=== PATIENT | female | born 1990 | race Caucasian/White ===

== ENCOUNTER 2018-02-28 17:02 | Emergency (ER) | payer MEDICAID, SELFPAY ==
[2018-02-28 17:02] VITALS: BP 145/76; PULSE 78; RESP 16; TEMP 36.1; O2SAT 98; BMI 49.6
[2018-02-28] MEDS: Ondansetron 4 MG/2 ML Vial IV (19:20)
[2018-02-28] MEDS: 0.9% Normal Saline 1,000 ML 1000 ML IV (19:20)
[2018-02-28] MEDS: Ketorolac 30 MG/ML Syringe IV (19:21)
[2018-02-28 19:38] LABS: Absolute Lymphocyte Count 3.85 X10^3/ul (0.83-4.51); Absolute Neutrophil Count 5.4 X10^3/uL (2.0-7.7); Basophil# 0.03 X10^3/uL; Basophil% 0.3 % (0-1); Eosinophil# 0.11 X10^3/uL; Eosinophils% 1.1 % (0-5); Hematocrit 38.3 % (37-47); Hemoglobin 13.2 g/dl (12.0-15.0); Lymphocyte # 3.85 X10^3/ul (4.0); Lymphocyte % 39.1 % (19-41); Mean Corp Hgb Conc 34.5 g/gl (32-36); Mean Corpuscular Hgb 30.5 pg (27.0-32.0); Mean Corpuscular Volume 88.5 fL (81-99); Mean Platelet Vol. 9.5 fl (6.2-12.0); Monocyte# 0.44 X10^3/uL; Monocyte% 4.5 % (0-10); Neutrophil # 5.39 X10^3/uL (2.7-7.7); Neutrophil % 54.8 % (47-70); Platelet Count 243 K/mm3 (150-450); RBC Distribution Width CV 12.7 % (11.6-14.6); RBC Distribution Width SD 40.6 fl (35.1-43.9); Red Blood Count 4.33 M/mm3 (4.2-5.4); White Blood Count 9.8 K/mm3 (4.4-11.0)
[2018-02-28 19:39] LABS: POSITIVE COUNT NO; POSITIVE DIFFERENTIAL NO; POSITIVE MORPHOLOGY NO
[2018-02-28 20:10] VITALS: BP 108/63; RESP 15; O2SAT 98
[2018-02-28 20:13] LABS: AST(SGOT) 21 U/L (15-37); Alanine Aminotransfer ALT/SGPT 26 U/L (13-56); Albumin, Serum 3.4 g/dL (3.2-5.0); Alkaline Phosphatase 87 U/L (45-117); Anion Gap 7 (5-15); BUN 10 mg/dL (7-18); BUN/Creat Ratio 14.9 RATIO (10-20); Calcium,Total 8.5 mg/dL (8.5-10.1); Chloride 107 mmol/L (98-107); Creatinine, Serum 0.67 mg/dL (0.55-1.02); EST Glomerular Filtration Rate 111 mL/min (>60); Est Glom Filt Rate - Afr Amer 135 mL/min (>60); Estimated Creatinine Clearance 108.91 ml/min; Globulin 3.4 g/dL (2.2-4.2); Glucose 79 mg/dL (74-106); Lipase 103 U/L (73-393); Potassium 3.6 mmol/L (3.5-5.1); Protein, Total 6.8 g/dL (6.4-8.2); Sodium Level 140 mmol/L (136-145)
[2018-02-28 20:31] LABS: Pregnancy, Serum, hCG Quali. NEGATIVE Negative (0-9 Nonpreg)
--- NOTE | 2018-02-28 20:58 | ED.DCSUM_ITS ---
- ER Visit Summary Date of Service: 02/28/18 Chief Complaint: Abdominal pain History of Present Illness: The patient is a [address] Lafleur. She reports that she has epigastric abdominal pain began approximately 2 months ago. Is continuous fullness with stabbing episodes. She reports pain is 1010 at worst and 7-10 currently. She states it is worsened with eating or drinking anything. This is not specific to fatty foods. She reports is relieved by nothing. She also complains of early satiety. Patient has had nausea without vomiting. No diarrhea. Her last bowel was today. She has had no melena or hematochezia. No dysuria frequency. No fever or chills. Her last menstrual period was February 03. States that she saw Dr. Nagel yesterday and was placed on Bentyl and omeprazole and has not had any relief. Physical Examination: Vitals: Stable. Afebrile. General: Well-nourished and well-developed. Head: Normocephalic atraumatic. Neck: Supple, no lymphadenopathy. No JVD. Nontender. Cardiovascular: Regular rate and rhythm. No murmurs. Respiratory: No respiratory distress. Clear to auscultation bilaterally. Abdominal: Soft, mild diffuse tenderness palpation that is worst in the epigastric region, nondistended, normal bowel sounds. No guarding, rebound, or peritoneal signs. Back: Nontender. Extremities: Nontender, no edema. Skin: Normal color, no rash. Neurologic: Alert and oriented ?3. Cranial nerves II through XII are intact. Normal strength and sensation. Psych: Normal affect. Test Results: CBC, Chem-7, LFTs, lipase are all normal. test is negative. Emergency Department Course and Treatment: Patient was given a GI cocktail p.o. She was given Toradol, Zofran, Pepcid IV. She is resting comfortably. Treatment Plan: Patient will be discharged instructions to continue her omeprazole. She instructed follow-up Dr. Lafleur in 1 week if not improving. Her symptoms are more consistent with gastritis or ulcer then biliary disease. She does have a history of cholecystectomy. Disposition: To home in improved and stable condition. Impression: 1. Abdominal pain, chronic. This note was generated with [employer] software. It may contain incorrect words, spelling, and punctuation that were not noted in review of the chart prior to signing ED Disposition - Plan for ED Patient: Disposition: Home or Assisted Living Chief Complaint: Abd Pain Instructions: ED PUD Vs Gastritis Referrals: Guanako Lafleur MD [Primary Care Provider] - 1 Week if not improving
[2018-02-28 21:10] VITALS: BP 108/63; PULSE 78; RESP 15; O2SAT 98
== END 2018-02-28 21:15 | disposition home or self-care (01) ==
PROVIDERS: Emergency Provider Emergency Medicine; Family Provider Family Medicine; PCP Family Medicine
DX: R10.13 Epigastric pain (principal); G89.29 Other chronic pain; R11.0 Nausea; Z79.899 Other long term (current) drug therapy
CPT/HCPCS: 80053; 83690; 84703; 85025; 96365; 96375; 99284; J7030; J2405; J3490

== ENCOUNTER → 2018-06-11 07:18 | Outpatient (CLI) | payer MEDICAID, SELFPAY ==
--- NOTE | 2018-06-11 09:46 | NEURO ---
NCS and/or EMG Patient Report Ordering Doctor: Anna Dean DATE OF SERVICE: 06/11/18 This is a bilateral upper extremity nerve conduction study and a right upper extremity EMG performed on this 28-year-old female who is currently 7 weeks . She has had enterprise systems engineer strength weakness as well as abnormal sensations in both hands for several years. Symptoms are worse on the right. There is no history of diabetes. She says a injection in the right wrist did help the symptoms for approximately 3 months but symptoms have recurred. Bilateral upper extremity sensory and motor nerve conduction study is performed demonstrating prolongation of the median motor and sensory distal latencies with preservation of amplitudes and mild drop in conduction velocities more so on the right side. The ulnar motor and sensory and radial sensory responses are normal. Median and ulnar F waves are relatively preserved bilaterally however the right median F wave is very mildly prolonged compared to the left median F wave and to the ulnar F waves. Right upper extremity EMG is performed. Muscles evaluated included the first dorsal interosseous, abductor pollicis brevis, brachioradialis, biceps, triceps and deltoid muscles. The abductor pollicis brevis did did demonstrate mild increase in motor unit potential amplitude, all other muscles demonstrated normal insertional activity with absence of pathologic spontaneous activity, as well as normal recruitment pattern and amplitude. Impression abnormal elective his like study consistent with moderate to severe carpal tunnel syndrome bilaterally worse on the right side.
== END ==
PROVIDERS: Family Provider Family Medicine; PCP Family Medicine; Referring Provider Orthopaedic Surgery; Visit Provider Orthopaedic Surgery
DX: R20.0 Anesthesia of skin (principal)
CPT/HCPCS: 95886; 95911

== ENCOUNTER 2019-11-26 17:08 | Emergency (ER) | payer MEDICAID, SELFPAY ==
[2019-11-26 17:09] VITALS: BP 144/96; PULSE 70; RESP 16; TEMP 36.6; O2SAT 97; BMI 42.9
--- NOTE | 2019-11-26 17:36 | CT_ITS ---
STUDY: CT BRAIN WITHOUT CONTRAST REASON FOR EXAM: Female, 29 years old. HEAD INJURY, NOT ACTING RIGHT, CONCERN FOR SEIZURE, NOT ACTING RIGHT RADIATION DOSAGE (If Supplied By Facility): CTDIvol = ( 44.99 ) mGy, DLP = ( 762.36 ) mGycm TECHNIQUE: Transaxial CT imaging of the brain was performed without administration of intravenous contrast material. Individualized dose optimization techniques were used for this CT. COMPARISON: None. FINDINGS: Normal soft tissue structures. Normal calvarium. No dense artery sign. No midline shift. No hydrocephalus. Normal size ventricles and extra-axial spaces for the patient''s age. Normal white matter tracts of the cerebral hemispheres. Normal basal ganglia and thalami. Normal brainstem. Normal cerebellum. There is no intracranial hemorrhage. There are no findings of an acute ischemic infarction. Normal visualized paranasal sinuses. CT/Brain/Head without Contrast IMPRESSION: No demonstrated acute or significant intracranial process. Electronically Signed: Zeyad Pleitez MD at 18:36 EDT , Service support ,
--- NOTE | 2019-11-26 17:40 | ED.VISSUMM ---
- ER Visit Summary Date of Service: 11/26/19 Chief Complaint: Head injury and possible seizure History of Present Illness: The patient is a 29 F past medical history of pancreatitis. Patient was getting a tattoo at 2 AM this morning at someone's house. It is a large tattoo on her left thigh. Just before the tattoo was finished she decided to stand up. As she stood up she passed out she fell towards refrigerator then fell backwards. Bystanders said she hit her head and may have had a seizure. She denies any headache. No neck pain. She does complain lower back pain. Prior events that she has not been sick recently. No fever, chills, nausea, vomiting or diarrhea. No dysuria. Physical Examination: Young female no acute distress vital signs stable afebrile. H EENT exam Dry reactive laser motions are intact. No signs of trauma to her face or scalp. Nontender. Neck nontender. Full range of motion. Able to touch chin to chest. No lymphadenopathy. Lungs clear to auscultation bilaterally. Heart regular rate and rhythm no murmur rate about 70. Chest wall nontender. Abdomen soft nontender normal bowel sounds no peritoneal signs. Mildly obese. Pelvic girdle intact. Remedies moves all 4. Neurovascular intact. Equal symmetrical 5-5 direct support professional home health strength. Dorsi plantarflexion intact. Back cervical thoracic spine nontender she has mild lumbar tenderness diffusely. There is no ecchymosis or bruising. No signs of trauma. Neurologically she is awake alert with no focal motor deficits. I asked the patient had a week she said she did know. She said she normally does not know. She did know the president and where she is currently present. She does follow commands. She has no motor deficits. Test Results: CAT scan brain read as normal by the radiologist and reviewed by me. LS-spine films 2 views read by me and the radiologist shows no acute abnormality. 2 views. CBC white count 12. Hemoglobin 13. No bands. Chemistries normal. Emergency Department Course and Treatment: Young female fall reported head injury and possible seizure. Exam is unremarkable at this time other than reproducible lumbar pain. Normal neurologic exam. Repeat exam patient is doing well at 1915. She will be discharged home. We went over all of her test results. She will be instructed to follow-up for further evaluation. Return if she has another seizure. Treatment Plan: Outpatient follow-up with primary care physician. Disposition: Discharge Impression: Fall with head injury Lumbar contusion Rule out seizure This note was generated with [employer] dictation software. It may contain incorrect words, spelling, and punctuation that were not noted in review of the chart prior to signing ED Disposition - Plan for ED Patient: Disposition: Home or Assisted Living Instructions: ED Head Injury Adult Referrals: Guanako Lafleur MD [Primary Care Provider] - 3-5 Days Additional Instructions: Call and follow-up with primary care physician. No driving until they rule out that you have any seizure diagnosis.
--- NOTE | 2019-11-26 18:03 | ED.DEP ---
ED Disposition - Plan for ED Patient: Disposition: Home or Assisted Living Instructions: ED Head Injury Adult Referrals: Gaunako Lafleur MD [Primary Care Provider] - 3-5 Days Additional Instructions: Call and follow-up with primary care physician. No driving until they rule out that you have any seizure diagnosis.
--- NOTE | 2019-11-26 18:05 | RAD_ITS ---
STUDY: X-RAY - LUMBAR SPINE REASON FOR EXAM: Female, 29 years old. FALL FROM SEIZURE, PAIN TO LOWER BACK TECHNIQUE: 3 view(s) of the lumbar spine were obtained. COMPARISON: None FINDINGS: Normal lumbar lordosis. There is no substantial scoliosis. There is a normal alignment of the vertebrae. Normal vertebral bodies and endplates. Normal disc space heights. There is no demonstrated fracture or compression deformity. The soft tissue structures are unremarkable. Surgical clips are present in the right upper quadrant. RAD/Lumbar Spine 2 or 3 Views IMPRESSION: Normal x-ray examination of the lumbar spine. Electronically Signed: Zeyad Pleitez MD at 18:48 EDT , Service support ,
[2019-11-26 18:16] LABS: Absolute Lymphocyte Count 3.99 X10^3/uL (0.83-4.51); Absolute Neutrophil Count 7.5 X10^3/uL (2.0-7.7); Basophil# 0.05 X10^3/uL; Basophil% 0.4 % (0-1); Eosinophil# 0.16 X10^3/uL; Eosinophils% 1.3 % (0-5); Hematocrit 42.8 % (37-47); Hemoglobin 13.8 g/dL (12.0-15.0); Lymphocyte # 3.99 X10^3/ul (4.0); Lymphocyte % 32.4 % (19-41); Mean Corp Hgb Conc 32.2 g/dL (32-36); Mean Corpuscular Hgb 29.2 pg (27.0-32.0); Mean Corpuscular Volume 90.7 fL (81-99); Mean Platelet Vol. 9.4 fl (6.2-12.0); Monocyte# 0.58 X10^3/uL; Monocyte% 4.7 % (0-10); NRBC Flagged by Analyzer 0 % (0-5); Neutrophil # 7.49 X10^3/uL (2.7-7.7); Neutrophil % 60.7 % (47-70); Platelet Count 259 K/mm3 (150-450); RBC Distribution Width CV 12.5 % (11.6-14.6); RBC Distribution Width SD 41.1 fl (35.1-43.9); Red Blood Count 4.72 M/mm3 (4.2-5.4); White Blood Count 12.3 K/mm3 (4.4-11.0)
[2019-11-26 18:31] LABS: Anion Gap 6 (5-15); BUN 11 mg/dL (7-18); BUN/Creat Ratio 14.5 RATIO (10-20); Chloride 110 mmol/L (98-107); Creatinine, Serum 0.76 mg/dL (0.55-1.02); EST Glomerular Filtration Rate 96 mL/min (>60); Est Glom Filt Rate - Afr Amer 116 mL/min (>60); Estimated Creatinine Clearance 94.32 ml/min; Glucose 87 mg/dL (74-106); Potassium 3.7 mmol/L (3.5-5.1); Sodium Level 143 mmol/L (136-145)
[2019-11-26 19:23] VITALS: BP 131/81; PULSE 69; RESP 16; O2SAT 99
== END 2019-11-26 19:29 | disposition home or self-care (01) ==
LOC: ED 18:17
PROVIDERS: Emergency Provider Emergency Medicine; PCP Family Medicine
DX: S09.90XA Unspecified injury of head, initial encounter (principal); S30.0XXA Contusion of lower back and pelvis, initial encounter; W19.XXXA Unspecified fall, initial encounter; Y93.89 Activity, other specified; Y92.009 Unspecified place in unspecified non-institutional (private) residence as the place of occurrence of the external cause; Z72.0 Tobacco use
CPT/HCPCS: 70450; 72100; 80048; 85025; 99284; A4216

== ENCOUNTER 2020-11-25 06:09 | Day surgery (SDC) | payer MEDICAID, SELFPAY ==
[2020-11-25] VITALS (9 sets, daily range): BP systolic 113–132; BP diastolic 65–88; PULSE 65–82; RESP 18–20; TEMP 36.3–36.7; O2SAT 93–100; BMI 41.8
[2020-11-25] MEDS: Lactated Ringers 1,000 ML 100 ML IV (07:03)
[2020-11-25] MEDS: Cefazolin 2 GM in 0.9% Normal Saline 100 ML IV (07:28)
--- NOTE | 2020-11-25 07:43 | HP.PCM_ITS ---
History and Physical I have re-examined the patient. There are no clinical changes since date of exam. Intake Intake Visit Reasons: Bilat Wrist Is patient in pain?: Yes Allergies codeine Allergy (Verified 11/03/20 10:41) Hives lorazepam [From Ativan] Allergy (Verified 11/03/20 10:41) Hives tramadol [From Ultram] Allergy (Verified 11/03/20 10:41) Hives Medications NK 11/26/19 [History Confirmed 11/03/20] [facility] Social History (Updated 11/03/20 @ 14:[address] Anna Dean DO) Smoking Status: Current every day smoker HPI Bilat Wrist: Details: Parts of this documentation were recorded by a scribe, this documentation accurately reflects the service provided and the decisions made by me, Dr. Anna Dean DO 11/03/20 1005. FEDERICO PAGE is a 30 year old F here today for was seen in 2019 - pain is getting worse going up arm now. She complains of bilateral wrist pain, right greater than left, into her elbows. She notes that she picks up light items and has cramping of her hands, and drops the items. Patient denies any cervical spine pain. Patient had injections many years ago which made her pain worse. She had an EMG which showed severe carpal tunnel syndrome. Patient notes that she has tried bracing which was not helpful. Ortho Exam Right Wrist/Hand Skin/Wound: Yes CDI, No Ecchymosis Right Wrist: Yes ROM-Extension 0-60, ROM-Flexion 0-80, ROM-Pronation 0-80, ROM- Supination 0-90 and Durken's Test Motor: EPL: 5, FDP-2: 4, 1st Dorsal Interosseous: 5, APB: 4 Sensation: Radial: I, Ulnar: I, Median: D WRIST: thenar atrophy Left Wrist/Hand Skin/Wound: No Ecchymosis Left Wrist: Yes ROM-Extension 0-60, Yes ROM-Flexion 0-80, Yes ROM-Pronation 0- 80, Yes ROM-Supination 0-90 and Yes Durken's Test Motor: EPL: 5, FDP-2: 4, APB: 4 Sensation: Radial: I, Ulnar: I, Median: D Assessment & Plan Problems 1. Carpal tunnel syndrome, bilateral G56.03 Plan Spoke with the patient about the surgery procedure and recovery for rt carpal tunnel release and left ct injection. Reviewed the pre-operative plans with the patient. Risks and benefits of the procedure were fully explained, including but not limited to infection, neurovascular injury, continued pain, arthritis, stiffness, need for further surgery, re-injury, DVT, PE, general risks of anesthesia, and loss of limb or life. The patient understands all the risks and does wish to proceed with written consent. discussed risks and options for treatment. Coding Level of Care Code Off vis,est,level 4 Diagnoses Carpal tunnel syndrome, bilateral G56.03 COVID (Procedure Consent) Procedure Criteria Procedure Criteria: Yes Elective The surgeon/proceduralist and patient have discussed in detail the risk of exposure to and/or potential harm posed by the COVID-19 virus with having a surgery/procedure at this time versus the risk of? delaying the surgery/procedure. It is not possible to know either the risk of delaying the surgery or procedure or chance of getting an infection with perfect accuracy, but a joint decision was made between the patient and the surgeon/proceduralist ?to proceed at this time with the scheduled surgery/procedure as indicated on the consent form.
--- NOTE | 2020-11-25 07:44 | DCINST_ITS ---
Discharge Diet: No Restrictions - Leave dressing on until seen in postop clinic in 10-14 days for suture removal, keep dressing clean, dry, intact; change dressing if gets wet/dirty, call with concerns Discharge Activity: May Not Drive May shower in (days): 1 Ice area for (Minutes): 20 - Every hour while awake. Weight Bearing Status: Weight bearing as tolerated Keep extremity elevated above heart level: Operative Extremity Call your doctor if your incision/area has: Continuous Slow Oozing, Sudden Increased Bleeding, Increased Pain/ Swelling, Increased Redness, Foul Smelling Discharge Call your doctor if you observe: Fever of 101 or Higher, Coldness, Increased Pain, Numbness or Tingling, Change in Color, Calf discomfort Allergies/Adverse Reactions: Allergies codeine Allergy (Verified 11/25/20 06:33) Hives Latex, Natural Rubber Allergy (Verified 11/25/20 06:33) Rash lorazepam [From Ativan] Allergy (Verified 11/25/20 06:33) Hives tramadol [From Ultram] Allergy (Verified 11/25/20 06:33) Hives Medications to take at Discharge traZODone [Desyrel] 50 mg PO QHS 11/25/20 Primary Care Physician: Guanako Lafleur MD [Primary Care Provider] - Test Results: Test results from this visit will be discussed in further detail at your follow- up appointment, if applicable. Please Follow Up With: Anna Dean, - [phone]
--- NOTE | 2020-11-25 07:44 | PCM.OPRPT ---
Report of Operation Date of Procedure: 11/25/20 Pre-Operative Diagnosis: bilateral carpal tunnel syndrome Post-Operative Diagnosis: same Surgery/Procedure Performed:: right carpal tunnel release, left carpal tunnel injection Type of Anesthesia:: Malcolm Matthews Anesthesiologist: Jared Yeager Estimated Blood Loss (mL): none Fluids Replaced: 600cc Description of Procedure: Preoperative note Patient is a 30 year old patient with nerve conduction study confirming bilateralcarpal tunnel syndrome. Patient failed conservative treatment for her carpal tunnel elected proceed with right carpal tunnel release and left carpal tunnel injection. Risks benefits and alternatives surgery discussed with patient. Risks including but not limited to blood loss, blood clot, infection, neurovascular injury, failure procedure, loss of life and loss of limb. Patient is aware like proceed with above. Operative note Patient seen and examined preoperative holding area. right hand was marked. History and physical and consent reviewed. Patient was brought to the operating room placed supine on the operating table. Sign in, anesthesia, antibiotics were administered. right upper extremity was prepped and draped after Malcolm block was initiated. All bony prominences well-padded SCDs placed on bilateral lower extremities. We marked out our incisions for our carpal tunnel release at the intersection of Bhaskar's line in the fourth ray flexed. We extended about a centimeter and a half. Timeout was performed. We then checked ensure that the Malcolm block was working with pickups which it was.. We then used a 15 blade to make a skin incision. We then dissected down tenotomy syllable of the transverse carpal ligament. We then used a new 15 blade cut through the transverse carpal ligament down to the level of the median nerve. We then further released the median nerve the combination of the 15 blade and tenotomies. The nerve was grayish in color and adherent to the transverse carpal ligament volarly. We released the transverse carpal ligament distally to the fat pad and then proximally under standard technique. We then palpated to ensure that we released all of the transverse carpal ligament which we did. We irrigated the incision with copious amounts of sterile saline. All bleeders were coagulated. The incision was closed with interrupted 4-0 nylon stitches. We then moved to the left side and under standard sterile technique injected the left carpal tunnel with 1 cc bupivacaine half cc Kenalog 40mg. tourniquet was deflated for total working time of 11 minutes. Patient tolerated procedure well there were no complications. Patient transferred to recovery room in stable condition. Postoperative note Hospital pharmacy has prescription Leave dressing clean dry and intact Follow-up in 2 weeks Call with concerns This note was generated with [employer] dictation software. It may contain incorrect words, spelling, and punctuation that were not noted in checking the note before signing
[2020-11-25] MEDS: Mupirocin Ointment 22gm Tube 1 APPLIC (08:00)
[2020-11-25] MEDS: Ropivacaine 0.5% 30 ML Vial (08:00)
[2020-11-25] MEDS: Triamcinolone Acetonide 40 MG/ML Vial (08:05)
== END 2020-11-25 09:39 | disposition home or self-care (01) ==
LOC: SDC 06:09 → AC 06:10
PROVIDERS: PCP Family Medicine; Referring Provider Orthopaedic Surgery; Visit Provider Orthopaedic Surgery
PROC: (CPT 64721; principal; 2020-11-25 07:15)
DX: G56.03 Carpal tunnel syndrome, bilateral upper limbs (principal); F17.200 Nicotine dependence, unspecified, uncomplicated
CPT/HCPCS: 01992; 20526; 64721; J7120; A4216

== ENCOUNTER 2020-12-28 10:40 | Emergency (ER) | payer MEDICAID, SELFPAY ==
[2020-12-28 10:42] VITALS: BP 157/93; PULSE 84; RESP 18; TEMP 36; O2SAT 94; BMI 41.8
--- NOTE | 2020-12-28 11:01 | EX.ED.VIS.UR ---
HPI HPI - URI History of Present Illness Chief Complaint: Shortness of Breath Narrative Narrative: Patient presents with cough congestion rhinorrhea and difficulty breathing through her nose. She is complaining of subjective chills. No noted fever. No myalgias. She does say it is somewhat difficult to smell or taste. She has history of DVT and PE but she says these are different symptoms. ROS ROS ED ROS Narrative Past medical history: DVT and PE, depression Medications: Reviewed Social history: Noncontributory Review of systems: All systems negative except as indicated General: No fever, subjective chills Eyes: No visual changes ENT: Upper airway congestion as in HPI Neck: No neck pain Cardiovascular: No chest pain Respiratory: Difficulty breathing through the nose but no other shortness of breath. She does have a slight cough but mostly nonproductive Gastrointestinal: No abdominal pain, nausea vomiting or diarrhea Genitourinary: No dysuria Musculoskeletal: Denies myalgias no difficulty with ambulation Skin: No rash Neurological: No memory loss, confusion or any focal weakness Psych: No recent behavioral changes Hematologic: No easy bleeding or easy bruising PFSH PFSH Home Medications trazodone 50 mg PO QHS 11/25/20 [History Last Taken Unknown] amoxicillin-pot clavulanate [Augmentin] 1 tab PO Q8H #21 tab 12/28/20 [Rx Last Taken Unknown] Allergy/AdvReac Type Severity Reaction Status Date / Time codeine Allergy Hives Verified 12/28/20 10:41 Latex, Natural Rubber Allergy Rash Verified 12/28/20 10:41 lorazepam [From Ativan] Allergy Hives Verified 12/28/20 10:41 tramadol [From Ultram] Allergy Hives Verified 12/28/20 10:41 Surgical History (Updated 12/28/20 @ 11:04 by Leah Mckinney) History of carpal tunnel surgery of right wrist History of cholecystectomy Social History Smoking Status: Current every day smoker EXAM Physical Exam Narrative Exam Narrative: Physical exam General: She appears in slight distress Head: Normocephalic, Atraumatic Eyes: Conjunctiva not pale ENT: She has rhinorrhea, swollen nasal turbinates, the nasal turbinates are beefy red. She has postnasal drip. Normal soft palate. No exudates. Neck: Supple, Nontender, No lymphadenopathy Cardiovascular: Regular rate, Regular rhythm Respiratory: No distress, CTA bilaterally. She is speaking in full sentences and she is not tachypneic. I do not appreciate any wheezing. Abdomen: Soft, Nontender, Nondistended Back: Nontender, Normal Inspection. Negative for: CVA tenderness Extremities: Nontender, No edema Skin: Normal color, No rash Neurological: Alert, Normal Strength, Normal Sensation Psychological: Normal affect Const Vital Signs: 12/28/20 10:42 12/28/20 11:03 Temperature 96.8 F L Temperature Source Temporal Pulse Rate 84 82 Respiratory Rate 18 18 Respiratory Effort Short of Breath Blood Pressure 157/93 H Blood Pressure Mean 114 Pulse Ox 94 99 Oxygen Delivery Method Room Air Room Air MDM MDM MDM Narrative Medical decision making narrative: Patient has signs and symptoms of an upper respiratory infection with sinusitis I will treat her accordingly. She has normal vitals normal saturation and a negative Covid. Radiography Diagnostic Testing: Chest x-ray interpreted by emergency doctor does not show any pneumonia, normal cardiac silhouette. Discharge Plan Triage Chief Complaint: Shortness of Breath ED Provider: Jake Cisneros Dx/Rx/DC Orders Clinical Impression: Sinusitis Instructions: ED Sinusitis (Antibiotic Treatment) Prescriptions: New amoxicillin-pot clavulanate [Augmentin] 500-125 mg tablet 1 tab PO Q8H Qty: 21 RF: 0 No Action trazodone 50 MG tablet 50 mg PO QHS RF: 0 Primary Care Provider: Guanako Lafleur Referrals: Guanako Lafleur MD [Primary Care Provider] - 2 Days
[2020-12-28 11:03] VITALS: PULSE 82; RESP 18; O2SAT 99
--- NOTE | 2020-12-28 11:10 | RAD_ITS ---
STUDY: X-RAY CHEST REASON FOR EXAM: Female, 30 years old. Cough TECHNIQUE: Single AP portable view of the chest. COMPARISON: Comparison is made with prior study dated 07/14/2015. FINDINGS: The lungs are clear and expanded. There is no demonstrated pleural abnormality. Normal size heart. Normal mediastinum and dutch. Normal visualized pulmonary arteries. Normal visualized aortic arch and descending thoracic aorta. Normal visualized thoracic spine. Normal visualized ribs, clavicles, and shoulders. There is no demonstrated abnormality of the visualized soft tissue structures of the upper abdomen. RAD/Chest 1 View (Portable) IMPRESSION: Normal x-ray examination of the chest. Electronically Signed: Albert Sigala MD at 11:51 EDT , Service support ,
[2020-12-28 12:04] VITALS: BP 126/74; PULSE 59; RESP 16; O2SAT 98
== END 2020-12-28 12:06 | disposition home or self-care (01) ==
LOC: ED 11:21
PROVIDERS: Emergency Provider Emergency Medicine; PCP Family Medicine
DX: J32.9 Chronic sinusitis, unspecified (principal); F17.200 Nicotine dependence, unspecified, uncomplicated
CPT/HCPCS: 71045; 87426; 99282

== ENCOUNTER 2021-02-14 11:46 | Day surgery (SDC) | payer MEDICAID, SELFPAY ==
[2021-02-14] VITALS (7 sets, daily range): BP systolic 108–142; BP diastolic 67–90; PULSE 59–79; RESP 16–106; TEMP 36.1–36.3; O2SAT 95–99; BMI 41.3
[2021-02-14] MEDS: Lactated Ringers 1,000 ML 100 ML IV (12:46)
[2021-02-14] MEDS: Bupivacaine Mpf 0.5% 30 ML VIAL (13:23)
[2021-02-14] MEDS: Cefazolin 2 GM in 0.9% Normal Saline 100 ML IV (15:09)
--- NOTE | 2021-02-14 15:41 | HP.PCM_ITS ---
History and Physical Date of Admission: 02/14/21 Date of Service: 01/04/21 MR#:[id number]: FEDERICO PAGE [facility] #:[id number]:1990 Provider:Dr. Max Schaffer DOAge/Sex: 30/F [place] [place] Intake Intake Visit Reasons: Right hand Chief Complaint: bilat wrist pain Allergies codeine Allergy (Verified 12/28/20 10:41) Hives Latex, Natural Rubber Allergy (Verified 12/28/20 10:41) Rash lorazepam [From Ativan] Allergy (Verified 12/28/20 10:41) Hives tramadol [From Ultram] Allergy (Verified 12/28/20 10:41) Hives [facility] Surgical History (Updated 12/28/20 @ 11:04 by Leah Mckinney) History of carpal tunnel surgery of right wrist History of cholecystectomy Social History Smoking Status: Current every day smoker HPI Right hand Details: Parts of this documentation were recorded by a scribe, this documentation accurately reflects the service provided and the decisions made by me, Dr. Max Schaffer, 01/04/21 0758. FEDERICO PAGE is a 30 year old F here today for 6 week post op right carpal tunnel release, left wrist/hand pain and numbness/tingling. Right hand is feeling much better, her ROM is good, she occasionally has sharp shooting pains into her pinky, but overall is much improved since surgery. She has no other concerns regarding her right hand. In regards to her left hand, she has sharp shooting pains from the base of her hand to the tips of all her fingers. Occasionally radiates up the arm to the elbow but does not go above the elbow. This started approximately 7 years ago. Denies injury, surgery, prior issues with extremity. Aggravating factors include holding things, driving, and holding a cup. Denies ice/heat. She has tried night splinting, which does not give her relief. She takes Tylenol, this does not help. She has not tried formal PT/OT. She can longer take NSAIDs per her PCP. Denies DM, inflammatory conditions, blood thinner, chemotherapy. 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 Smokes 1 pack every 2-3 day. Denies ETOH use. Right carpal tunnel release 11/25/20. Left carpal tunnel injection 11/25/20, this worked for less than a month. Has had an EMG in 2018. She denies dropping things with her left hands. ROS Const Denies chills and Denies fever(s) ENT Denies neck pain Card Denies dyspnea Resp Denies dyspnea GI Denies nausea and Denies vomiting Musc Denies abnormal gait, Denies arthralgias, Denies back pain, Denies joint swelling, Denies limited range of motion, Denies muscle cramps, Denies muscle weakness, Denies myalgias, Denies neck pain, Reports numbness, Reports radiating pain into limb (into hands), Denies stiffness and Reports tingling Skin/Breast Denies rash Neuro No abnormal gait, Yes numbness and Yes tingling Ortho Exam General General: Yes no acute distress Neurologic: Yes alert and Yes oriented x3 Psychologic: Yes reasonable and appropriate Right Wrist/Hand Date of Surgery: 11/25/20 Skin/Wound: Yes healed, No Swelling, No Ecchymosis, Yes nail intact and Yes capillary refill normal Right Wrist: Yes ROM-Extension 0-60, ROM-Flexion 0-80, ROM-Pronation 0-80 and ROM-Supination 0-90 WRIST: Neurovascularly intact, erythema around incision site from healing, TTP on and around the incision site. Left Wrist/Hand Skin/Wound: No Swelling, No Ecchymosis, Yes nail intact, Yes capillary refill normal and No erythema Left Wrist: Yes ROM-Extension 0-60, Yes ROM-Flexion 0-80, Yes ROM-Pronation 0- 80, Yes ROM-Supination 0-90, Yes Durken's Test, Yes Tinel's (down fingers) and Yes Phalen's Motor: EPL: 5 and FDP-2: 4 Sensation: Radial: I, Ulnar: I and Median: D WRIST: Radial pulse 2+. Supplemental Info 06/11/2018 EMG bilateral upper extremity: Consistent with moderate to severe bilateral carpal tunnel 03/21/17 xray right wrist: Normal x-ray examination of the wrist. 03/21/17 xray left wrist: Normal x-ray examination of the wrist. Coding Level of Care Code Off vis,est,level 3 Diagnoses Left carpal tunnel syndrome G56.02 Assessment and Plan Assessment and Plan (1) Left carpal tunnel syndrome: Status: Acute Plan - Dr. Max Schaffer DO: Patient is 6 weeks post op right carpal tunnel release and left carpal tunnel injection. At this time patient is doing well. She no longer has any restrictions on her right hand and can increase weight and ROM at her own comfort level. Educated her that she should use Vit E or lidocaine jelly over the incision site to help with desensitization and scar tissue break up. In regards to her left hand, she would like to proceed with a left carpal tunnel release. At this time she is finishing up antibiotics for a cold - she has 2 days left. Advised her that if she is feeling better and no longer taking antibiotics we can schedule her in a couple of weeks for a left carpal tunnel release. Answered the patients questions, she is in agreement with the plan. 01/04/21 1548<Electronically signed by Max Schaffer DO>Date Max Schaffer DO 01/04/21 1620<Electronically signed by Kamille LAGUNACosigner Signature:Date (if applicable)Kamille Marsh have re-examined the patient. There are no clinical changes since date of exam
--- NOTE | 2021-02-14 15:41 | PCM.OPRPT ---
Report of Operation Description of Surgical Findings:: Preoperative diagnosis; left carpal tunnel syndrome Postoperative diagnosis; same Procedure: Left open carpal tunnel release Anesthesia: Local with MAC Tourniquet time; 11 minutes 250 mm Hg Complications: None Indication for procedure; This is a 30-year-old female with long-standing symptoms consistent with carpal tunnel syndrome the patient did have electrodiagnostic evidence of this and has failed conservative treatment. Risks benefits and alternatives were reviewed including risks of bleeding infection nerve artery tissue damage need for further surgery and continued pain and symptoms, hypersensitivity to scar and Pillar pain. Procedure; The patient was met in the preoperative holding area the operative extremity was identified by both patient and physician and was marked the patient was met by anesthesia and brought back to the operating room and transferred to the operating table in the supine position. Aanesthesia was started. A well-padded tourniquet was placed on the operative upper extremity. The patient was prepped and draped in the usual sterile fashion. A timeout was called to ensure the proper patient procedure and extremity were being contemplated. 0.5 percent Marcaine with epinephrine was injected into the incisional area. An Esmarch was used to exsanguinate the extremity. The tourniquet was inflated to 250 mmHg. A midline incision was made with a 15 blade scalpel between the thenar and hypothenar eminence. This was carried down through the skin and subcutaneous tissue. Chacho retractors were then used, a deep blade scalpel was used to make a deep incision in the palmar aponeurosis. The chacho retractors were then placed deep to this and the transverse carpal ligament was identified a perforation was made with a scalpel and a Littler scissors were used to complete the release of the transverse carpal ligament distally under direct visualization with the tips facing ulnarly until the perivascular fat was reached. Then turning our attention proximally using a tension slide technique the proximal extent of the transverse carpal ligament was released . There was noted to be hourglass configuration to the median nerve and hypertrophy of the transverse carpal ligament without other findings. The wound was thoroughly irrigated and was closed with 4-0 nylon vertical mattress stitches. Dressing was applied in the form of xeroform 4 x 4, web roll and an adelina wrap. Tourniquet was let down there is no intraoperative complications patient tolerated the procedure well and was transferred to the PACU. All counts were correct.
--- NOTE | 2021-02-14 15:42 | PCM.DC ---
Discharge Instructions Diet Discharge Diet: No restrictions Dressing / Incision Additional Dressing/Incision Instructions:: Ice and elevate operative extremity next 72 hours. Keep dressing on clean and dry for 48 hours then may remove and allow warm soapy water to rinse over incision but do not submerge until sutures are out. Then apply bandaid over incision and change daily. encourage finger range of motion. Not lift more than 1/2 pound. Follow Up Care Please Follow Up With: Max Schaffer DO When: 2 weeks Test Results: Test results from this visit will be discussed in further detail at your follow-up appointment, if applicable. Discharge Plan Admission Attending Provider: Max Schaffer Primary Care Provider: Guanako Lafleur Discharge Orders/Prescriptions Prescriptions: New hydrocodone-acetaminophen 5-325 mg tablet 1 tab PO Q4H PRN (Reason: pain) 7 Days Qty: 20 RF: 0 No Action hydroxyzine pamoate [Vistaril] 25 mg Capsule 25 mg PO BID PRN (Reason: Anxiety) RF: 0 Referrals / Follow Up: Guanako Lafleur MD [Primary Care Provider] - Disposition Discharge Orders: Discharge Patient (Routine); Ordered 02/14/21 Ordered By: Dr. Max Schaffer
== END 2021-02-14 16:37 ==
LOC: SDC 11:46 → AC 11:48
PROVIDERS: PCP Family Medicine; Referring Provider Orthopaedic Surgery; Visit Provider Orthopaedic Surgery
PROC: (CPT 64721; principal; 2021-02-14 14:15)
DX: G56.02 Carpal tunnel syndrome, left upper limb (principal); F17.200 Nicotine dependence, unspecified, uncomplicated; I10 Essential (primary) hypertension; Z86.718 Personal history of other venous thrombosis and embolism
CPT/HCPCS: 01810; 64721; 87426; C9803; J7120; J2405

== ENCOUNTER 2021-11-06 21:33 | Emergency (ER) | payer MEDICAID, SELFPAY ==
[2021-11-06 21:36] VITALS: BP 128/81; PULSE 89; RESP 18; TEMP 36.3; O2SAT 98; BMI 34.3
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
[2021-11-07 01:08] VITALS: BP 136/78; PULSE 81; RESP 17; O2SAT 95
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
== END 2021-11-07 01:08 | disposition home or self-care (01) ==
PROVIDERS: Emergency Provider Emergency Medicine; PCP Family Medicine; Visit Provider Emergency Medicine
DX: S06.0X0A Concussion without loss of consciousness, initial encounter (principal); S16.1XXA Strain of muscle, fascia and tendon at neck level, initial encounter; V40.5XXA Car driver injured in collision with pedestrian or animal in traffic accident, initial encounter; Y93.89 Activity, other specified; Y99.8 Other external cause status; Y92.410 Unspecified street and highway as the place of occurrence of the external cause; F17.210 Nicotine dependence, cigarettes, uncomplicated; E66.9 Obesity, unspecified; Z68.34 Body mass index [BMI] 34.0-34.9, adult
CPT/HCPCS: 70450; 72125; 99284; 99285

== ENCOUNTER 2023-04-24 20:30 | Emergency (ER) | payer MEDICAID, SELFPAY ==
[2023-04-24 20:31] VITALS: BP 129/76; PULSE 74; RESP 18; TEMP 36.7; O2SAT 100; BMI 31.7
--- NOTE | 2023-04-24 21:06 | EX.ED.VIS.EY ---
HPI History of Present Illness Chief Complaint: Eye Problem Associated Symptoms Visual Changes: left: Blurred vision and Cloudy vision Visual correction: Corrective contact lenses Narrative Narrative: 33-year-old female who denies significant past medical history presents with left eye pain and blurry vision that she has had since yesterday. She states that she has contact lenses that are extended wear that she has worn over the last month. Occasionally she takes them out and cleans them. She states yesterday she took them out and there were white specks on her lens which she had to scrape off. She complains of left eye pain and eyelid swelling along with redness. She noted exudate that was yellowish-green. On the left eye. She endorses photophobia mainly out of her left eye. No fevers or chills. No other symptoms. [facility] Medical History Anxiety Blister Depression DVT (deep venous thrombosis) Easy bruising Hypertension Marijuana use Smoker Wears contact lenses Wears dentures Wears glasses Home Medications NK 04/24/23 [History Last Taken Unknown] Allergy/AdvReac Type Severity Reaction Status Date / Time codeine Allergy Hives Verified 04/24/23 20:32 Latex, Natural Rubber Allergy Rash Verified 04/24/23 20:32 lorazepam [From Ativan] Allergy Hives Verified 04/24/23 20:32 tramadol [From Ultram] Allergy Hives Verified 04/24/23 20:32 Surgical History History of History of carpal tunnel surgery of right wrist History of cholecystectomy Hx of tubal ligation Social History household members: spouse Smoking Status: Current every day smoker tobacco type: cigarettes ROS ROS ED ROS Narrative Constitutional: No fever, no chills. HEENT: No sore throat. No neck pain. No loss of vision. No rhinorrhea. Left eye pain and redness with exudate. Positive photophobia. Cardiovascular: No chest pain. No palpitations. No pedal edema. Respiratory: No cough, no shortness of breath. Abdominal: No abdominal pain. No nausea. No vomiting. Genitourinary: No dysuria. No hematuria. Musculoskeletal: No myalgias. No arthralgias. Neurologic: No headaches. No dizziness. No lightheadedness. Skin: No rash. No change in color. Psychiatric: No depression. No anxiety. EXAM Physical Exam Narrative Exam Narrative: Afebrile. Vital signs noted. HEENT: Normocephalic. Atraumatic. PERRL, EOMI. left eye with conjunctival injection with mild exudate. Minimal periorbital swelling, no overt erythema. Neck soft and supple. No point tenderness or step off. Cardiovascular: Regular rate and rhythm. No murmurs, rubs, or gallops appreciated. Respiratory: No tachypnea. Lungs clear to auscultation bilaterally. Gastrointestinal: Abdomen soft, nontender, with normoactive bowel sounds. No rebound or guarding. Neurological: Awake. Alert. Nonfocal, nonlateralizing. Skin: No rash. Normal color. No pallor. Musculoskeletal: No pedal edema. Full range of motion extremities. Const Vital Signs: 04/24/23 20:31 Temperature 98.0 F Temperature Source Temporal Pulse Rate 74 Respiratory Rate 18 Blood Pressure 129/76 H Blood Pressure Mean 93 Pulse Ox 100 Oxygen Delivery Method Room Air MDM MDM MDM Narrative Medical decision making narrative: Concern is for corneal ulcer given the patient's extended contact lens wearing and sleeping in them. She was told not to have this done in the future. Tetracaine will be instilled in the left eye. The exam was difficult afterwards, but I saw no evidence of corneal ulcer that was definitive. She may have had dye uptake on the underside of the cornea diffusely. The patient was discussed with Dr. Espinoza with ophthalmology. Cipro will be instilled in her left eye. He instructed that I tell her to place 1 drop in her left eye every hour while she is awake and she can be seen at the ophthalmology clinic at 8 AM tomorrow morning. Upon repeat examination, she is able to open her eye more. I suspect that she has a corneal ulcer or corneal injury from extended contact lens wearing. I feel she can be discharged safely home with follow-up. I stressed the importance of follow-up with ophthalmology tomorrow morning. Return instructions to the emergency department were reviewed. Disposition is discharged home in stable condition. Discharge Plan Triage Chief Complaint: Eye Problem ED Provider: Satish Laureano Dx/Rx/DC Orders Clinical Impression: Acute left eye pain, Corneal ulcer Instructions: ED Corneal Injury, Contact Lens, ED Corneal Ulcer Prescriptions: No Action NK Primary Care Provider: Care Physician,No Primary Referrals: Elder Espinoza MD [Med Staff - Active Staff] - 04/25/23 8:00 am Guanako Lafleur MD [Non-Staff] - Activity Restrictions/Additional Instructions: Put 1 drop of the ciprofloxacin eyedrop in your left eye every hour that you are awake until seen by ophthalmology tomorrow morning at 8 AM. Disposition Disposition: Home, Self Care
[2023-04-24 22:00] VITALS: RESP 18
[2023-04-24] MEDS: Tetracaine 0.5% Ophthalmic Bottle 1 DRP OPHTHALMIC (22:01)
[2023-04-24] MEDS: Fluorescein 1 MG STRIP 1 STRIP OPHTHALMIC (22:02)
== END 2023-04-24 22:15 | disposition home or self-care (01) ==
PROVIDERS: Emergency Provider Emergency Medicine; Visit Provider Emergency Medicine
DX: H57.12 Ocular pain, left eye (principal); H16.002 Unspecified corneal ulcer, left eye; F17.210 Nicotine dependence, cigarettes, uncomplicated; Z86.718 Personal history of other venous thrombosis and embolism
CPT/HCPCS: 99283

== ENCOUNTER 2023-06-05 13:56 | Emergency (ER) | payer MEDICAID, SELFPAY ==
[2023-06-05 13:56] VITALS: BP 146/83; PULSE 87; RESP 14; TEMP 36.4; O2SAT 100; BMI 32.6
--- NOTE | 2023-06-05 14:23 | EDS_ITS ---
HPI History of Present Illness Chief Complaint: Headache Informant: patient Onset/Context/Timing Onset: Days Context: Gradual Timing: Continuous Quality -Headache: Positive for Similar Prior Headaches and Sharp Current Severity: Moderate Maximum Severity: Moderate Associated Symptoms/Injury Associated Symptoms: Negative for Fever, Nausea, Vomiting, Sore Throat, Sinus Pressure, Numbness, Tingling, Preceding Aura, Visual Changes, Blurred Vision, Photophobia or Visual Loss Injury - SALAZAR: Negative for Direct Trauma, Fall or Assault Narrative Narrative: 33-year-old female with a history of headaches. Only other prior history was she had a DVT when she was 4 years ago. Currently not on blood thinners. States that for about a week starting last gradual onset she had pain in her left shoulder blade grade that goes up into her head. Said it hurts to touch. She has a history of migraines. Mom has a history of headaches. No family history of intracranial bleeds, aneurysms or brain surgery. Prior similar symptoms: Yes Recent Illness/Hospitalization: No PFSH PFSH Medical History Anxiety Blister Depression DVT (deep venous thrombosis) Easy bruising Hypertension Marijuana use Smoker Wears contact lenses Wears dentures Wears glasses Home Medications metaxalone 800 mg tablet 800 mg PO TID PRN muscle pain 7 days #21 tabs 06/05/23 [Rx Last Taken Unknown] Allergy/AdvReac Type Severity Reaction Status Date / Time codeine Allergy Hives Verified 06/05/23 13:56 Latex, Natural Rubber Allergy Rash Verified 06/05/23 13:56 lorazepam [From Ativan] Allergy Hives Verified 06/05/23 13:56 tramadol [From Ultram] Allergy Hives Verified 06/05/23 13:56 Surgical History History of History of carpal tunnel surgery of right wrist History of cholecystectomy Hx of tubal ligation Social History household members: spouse Smoking Status: Current every day smoker tobacco type: cigarettes ROS ROS ED ROS Narrative Headache with left posterior shoulder blade pain. Review of Systems ROS Unobtainable: Denies due to encephalopathy Constitutional Constitutional ED: Denies chills or fever(s) Eyes Eyes: Denies blurry vision ENT ENT ED: Denies ear pain Cardiovascular Cardiovascular: Denies chest pain Respiratory/Chest Respiratory/Chest: Denies cough or dyspnea Gastrointestinal Gastrointestinal: Denies abdominal pain Genitourinary Genitourinary ED: Denies dysuria or hematuria Musculoskeletal Musculoskeletal: Reports back pain; Denies arthralgias Integumentary Denies abscess or Abrasions Neurologic Neurologic: Reports headache(s) Psychiatric Psychiatric: Denies anxiety or depression Endocrine Endocrinology: Denies polydipsia Hematologic/Lymphatic Hematologic/Lymphatic: Denies easy bleeding, easy bruising or lymphadenopathy Allergic/Immunologic Allergic/Immunologic ED: Denies mouth swelling, tongue swelling or urticaria EXAM Physical Exam Narrative Exam Narrative: Well-appearing 33-year-old female. Sitting upright in bed. Vital signs stable afebrile. She does not look septic toxic. She is in no distress. H EENT exam unremarkable. Pupils round reactive light. No facial droop. Normal speech. Face and scalp nontender. Neck nontender no meningismus. No lymphadenopathy. Able to touch chin to chest. Lungs clear to auscultation. Heart regular rhythm. Abdomen soft nontender. Moving all 4 extremities. Neurovascular intact. 5 out of 5 motor strength. Dorsi plantarflexion intact. Neurologic exam normal. NIH is 0. Finger-nose within normal limits. Bbgm-vm-sdal normal. Patient's back is unremarkable and she has tenderness near her left scapula. Consistent with musculoskeletal pain. Const Vital Signs: 06/05/23 13:56 Temperature 97.6 F L Temperature Source Temporal Pulse Rate 87 Respiratory Rate 14 Blood Pressure 146/83 H Blood Pressure Mean 104 Pulse Ox 100 Oxygen Delivery Method Room Air Positive well nourished and well developed; Negative for cachectic, contractures or unkempt General Appearance ED: well developed and NAD; Negative for unkempt, cachectic, contractures, cyanotic, diaphoretic or pallor Nutritional Appearance: Negative for cachectic HEENT Reports normocephalic and moist mucous membranes atraumatic; Negative for trauma, tenderness, temporal artery tenderness or vesicular rash Eyes PERRL and EOMs intact bilaterally General Eye ED: Negative for pale conjunctiva or scleral icterus Neck no lymphadenopathy, supple, no meningeal signs and no JVD General: Negative for tenderness Resp normal respiratory effort and clear to auscultation bilaterally Effort and Inspection: Negative for retractions Auscultation: Negative for rales, rhonchi or wheezes Cardio regular rate, regular rhythm, S1 normal heart sound, S2 normal heart sound and no murmurs Rate: Negative for bradycardia or tachycardic Rhythm: Negative for abnormal rhythm GI non-distended Auscultation: normoactive bowel sounds Palpation: soft; Negative for firm or tender Back/Spine no CVA tenderness General Back: Negative for CVA tenderness Cervical Spine: Negative for cervical spine tenderness Thoracic Spine / Upper Back: Negative for thoracic spinal tenderness Lumbar Spine / Lower Back: Negative for lumbar spinal tenderness Extremity normal to inspection, full ROM and normal capillary refill General Extremety ED: Negative for edema, tenderness or other findings General Extremity: Negative for edema or other findings Neuro oriented x3, CN's II-XII intact bilaterally and no sensory deficits noted Sensorium / Orientation: awake, oriented to person, oriented to place and oriented to time; Negative for orientation impaired, lethargic, stuporous or other Coordination / Balance: [id number] test normal and [id number] test normal Speech: speech normal Motor Exam: strength 5/5 throughout Psych mental status grossly normal Appearance: Negative for unkempt Attitude: No agitated Mood & Affect: Negative for depressed, anxious or tearful Skin General Skin Exam: elasticity normal and turgor normal; Negative for jaundice or pallor Lesions: no lesions Rashes: no rashes Trauma: Negative for abrasion MDM MDM MDM Narrative Medical decision making narrative: 33-year-old female history of headaches. Similar headache in the past. Neurologic exam normal. Treated with IV Toradol, fluids Benadryl and Zofran and reassess. Do not think she needs labs or imaging at this time. Repeat exam at 4:08 PM. Patient does have some relief of her headache. Still having the left posterior musculoskeletal shoulder pain. She will be discharged home. Prescription for Skelaxin. History & Record Review Discussion w/independent historian: Patient Additional record(s) reviewed:: Prior inpatient record, Prior outpatient record, Prior ED visit and Prior labs Discharge Plan Triage Chief Complaint: Headache ED Provider: Nakul Zamora Dx/Rx/DC Orders Clinical Impression: Headache, Musculoskeletal back pain Instructions: ED Back Pain (Acute or Chronic) Prescriptions: New metaxalone 800 mg tablet 800 mg PO TID PRN (Reason: muscle pain) 7 Days Qty: 21 0RF Primary Care Provider: Care Physician,No Primary Referrals: Rafi Vides MD [Med Staff - [employer]] - 1 Week if not improving Care Physician,No Primary [Primary Care Provider] - Activity Restrictions/Additional Instructions: Return and Tylenol for pain. Muscle relaxant Skelaxin for your back. Heat, massage, whirlpool tub should progressively improve. Disposition Disposition: Home, Self Care
[2023-06-05] MEDS: DiphenhydrAMINE 50 MG/ML Syringe 25 MG IV (14:34)
[2023-06-05] MEDS: 0.9% Normal Saline (500mL Bag) 500 ML 1000 ML IV (14:34)
[2023-06-05] MEDS: Ondansetron 4 MG/2 ML Vial IV (14:34)
[2023-06-05] MEDS: Ketorolac 30 MG/ML Syringe IV (14:34)
--- NOTE | 2023-06-05 15:13 | CM.ED ---
Social Work Note Referral Source: case find Referral Reason: no PCP SW met with patient and introduced herself and role as [facility] [employer]. Patient lying on hospital bed and agreeable to speak with SW. SW inquired about patient's insurance and current PCP. Patient verified insurance and reports no current PCP. SW provided patient with a list of local PCPs in network with patient's insurance and accepting new patients. Patient was receptive towards list and voiced no other needs. SW remains available if needs arise. Rekha Rodriguez MSW, K[place]LEE
[2023-06-05 16:39] VITALS: BP 117/79; PULSE 68; RESP 16; O2SAT 97
== END 2023-06-05 16:40 | disposition home or self-care (01) ==
PROVIDERS: Emergency Provider Emergency Medicine; Visit Provider Emergency Medicine
DX: R51.9 Headache, unspecified (principal); I10 Essential (primary) hypertension; M54.9 Dorsalgia, unspecified; F17.210 Nicotine dependence, cigarettes, uncomplicated; Z86.718 Personal history of other venous thrombosis and embolism
CPT/HCPCS: 96361; 96374; 96375; 99283; J7030; A4216; J2405